=== PATIENT | female | born 1935 | race Hispanic/Latino ===

== ENCOUNTER 2020-09-26 13:42 | Outpatient (CLI) | payer MEDICARE ==
[2020-09-27 05:52] LABS: SARS-CoV-2 PCR by NAA Not Detected (NotDetected)
== END 2020-09-26 13:43 | disposition home or self-care (01) ==
LOC: CSHLAB 13:42
PROVIDERS: ATTEND Internal Medicine Gastroenterology
DX: Z20.822 Contact with and (suspected) exposure to COVID-19 (principal); K63.5 Polyp of colon
CPT/HCPCS: 87635; U0003; U0005

== ENCOUNTER 2020-09-29 08:38 | Day surgery (SDC) | payer MEDICARE ==
[2020-09-28 10:49] VITALS: BMI 28.3
[2020-09-29] MEDS ORDERED: Lidocaine 1% MPF 2 ML VIAL ONE (09:45)
[2020-09-29] MEDS ORDERED: PROPOFOL 40 ML ONE (10:23)
[2020-09-29] MEDS ORDERED: Lidocaine 1% PF 5 ML VIAL ONE (10:51)
== END 2020-09-29 12:10 | disposition home or self-care (01) ==
LOC: CSHSDC 08:38
PROVIDERS: ATTEND Internal Medicine Gastroenterology
DX: D12.2 Benign neoplasm of ascending colon (principal); D12.4 Benign neoplasm of descending colon; R10.9 Unspecified abdominal pain; K57.30 Diverticulosis of large intestine without perforation or abscess without bleeding; K64.9 Unspecified hemorrhoids; I10 Essential (primary) hypertension; M81.0 Age-related osteoporosis without current pathological fracture; F41.9 Anxiety disorder, unspecified; Z90.49 Acquired absence of other specified parts of digestive tract; Z90.710 Acquired absence of both cervix and uterus
CPT/HCPCS: 88305; J2704

== ENCOUNTER 2022-01-14 13:20 | Inpatient (IN) | payer MEDICARE ==
[2022-01-14] MEDS ORDERED: Ondansetron PF 4 MG/2 ML Vial ONE ×2 (13:39→14:12)
[2022-01-14] MEDS ORDERED: Aspirin Chewable 81 MG TAB ONE (13:39)
[2022-01-14 13:43] LABS: #Eosinphils 0.1 10x3/uL (0.0-0.5); #Monocytes 0.4 10x3/uL (0.0-1.1); #Neutrophils 3.9 10x3/uL (1.5-8.4); %Basophils 0.3 % (0.0-2.0); %Eosinophils 1.6 % (0.0-6.0); %Monocytes 7.2 % (0.0-10.0); %Neutrophils 64.4 % (40.0-75.0); Hemoglobin 14.5 g/dL (12.0-15.5); Mean Corpuscular HGB CONC 34.4 g/dL (32.0-36.0); Mean Corpuscular Hemoglobin 35.4 pg (27.0-33.0); Mean Corpuscular Volume 102.9 fl (81.6-98.3); Mean Platelet Volume 9.6 fl (7.4-10.4); Platelet Count 495 10x3/uL (150-450); RBC Distribution Width 13.9 % (11.5-14.5); White Blood Cell (WBC) Count 6.1 10x3/uL (3.5-10.5)
[2022-01-14 14:00] LABS: ALT (SGPT) 21 U/L (8-55); AST (SGOT) 26 U/L (5-34); Albumin 4.2 g/dL (3.4-4.8); Alkaline Phosphatase 53 U/L (40-110); Anion Gap 16 mmol/L (10-20); BUN (Urea Nitrogen) 17 mg/dL (9.8-20.1); Bilirubin, Total 1.2 mg/dL (0.2-1.2); CK (CPK) 33 U/L (29-168); Calc. Creatinine Clearance 0 mL/min (70-130); Calcium 9.5 mg/dL (7.8-10.44); Carbon Dioxide 24 mmol/L (23-31); Chloride 103 mmol/L (98-107); Estimated GFR 77; Globulin 2.7 g/dL (2.4-3.5); Glucose 128 mg/dL (83-110); Potassium 4.6 mmol/L (3.5-5.1); Protein, Total 6.9 g/dL (5.8-8.1); Sodium 138 mmol/L (136-145)
[2022-01-14] MEDS ORDERED: Lorazepam 2 MG/ML VIAL ONE (14:23)
[2022-01-14] MEDS ORDERED: Ondansetron ODT 4 MG TAB PO PRN (17:09)
[2022-01-14] MEDS ORDERED: Ondansetron PF 4 MG/2 ML Vial IVP PRN (17:09)
[2022-01-14] MEDS ORDERED: Acetaminophen 325 MG TAB PO PRN (17:09)
[2022-01-14 17:52] LABS: Troponin I Less than 0.010 ng/mL (< 0.028)
[2022-01-14] MEDS ORDERED: Promethazine 25 MG TAB PO PRN (17:58)
[2022-01-14] MEDS ORDERED: hydrALAZINE 20 MG/ML VIAL SLOW IVP PRN (17:58)
[2022-01-14] MEDS ORDERED: Promethazine HCl 25 MG SUPP PR PRN (17:58)
[2022-01-14 19:47] LABS: Troponin I Less than 0.010 ng/mL (< 0.028)
[2022-01-14] MEDS ORDERED: Sodium Chloride 0.9% 1,000 ML IV SCH (21:15)
[2022-01-14 22:11] LABS: Bilirubin Neg (Negative); Blood, Urine 10 (Negative); Clarity Cloudy (Clear); Glucose, Urine (Dipstick) Normal (Negative); Ketone, Urine 50 mg/dL (Negative); Leukocyte 25 (Negative); Nitrite Negative (Negative); Protein, Urine (Dipstick) Negative (Neg-Trace)
[2022-01-14 22:20] LABS: Bacteria/HPF 4+ HPF (None Seen); Mucous/LPF None Seen LPF (<2+); RBC/HPF None Seen HPF (0-3); Squamous Epithelial None Seen HPF (0-3)
[2022-01-14 22:28] LABS: SARS-CoV-2 NAA Rapid Test Not Detected (NotDetected)
[2022-01-15 00:01] VITALS: BMI 40.4
[2022-01-15 00:31] LABS: Hemoglobin A1c 4.9 % (4.0-6.0)
[2022-01-15 04:44] LABS: #Eosinphils 0.2 10x3/uL (0.0-0.5); #Monocytes 0.7 10x3/uL (0.0-1.1); #Neutrophils 3.9 10x3/uL (1.5-8.4); %Basophils 0.6 % (0.0-2.0); %Eosinophils 2.3 % (0.0-6.0); %Lymphocytes 26.9 % (18.0-47.0); %Monocytes 10.6 % (0.0-10.0); %Neutrophils 59.3 % (40.0-75.0); Hemoglobin 13.7 g/dL (12.0-15.5); Mean Corpuscular HGB CONC 34.5 g/dL (32.0-36.0); Mean Corpuscular Hemoglobin 35.6 pg (27.0-33.0); Mean Corpuscular Volume 103.1 fl (81.6-98.3); Mean Platelet Volume 9.7 fl (7.4-10.4); Platelet Count 399 10x3/uL (150-450); RBC Distribution Width 14.2 % (11.5-14.5); Red Blood Cell (RBC) Count 3.85 10x6/uL (3.90-5.03); White Blood Cell (WBC) Count 6.5 10x3/uL (3.5-10.5)
[2022-01-15 04:56] LABS: ALT (SGPT) 18 U/L (8-55); AST (SGOT) 22 U/L (5-34); Albumin 3.5 g/dL (3.4-4.8); Alkaline Phosphatase 44 U/L (40-110); Anion Gap 14 mmol/L (10-20); BUN (Urea Nitrogen) 15 mg/dL (9.8-20.1); Bilirubin, Total 1.5 mg/dL (0.2-1.2); Calc. Creatinine Clearance 58 mL/min (70-130); Calcium 8.7 mg/dL (7.8-10.44); Carbon Dioxide 24 mmol/L (23-31); Chloride 105 mmol/L (98-107); Cholesterol 144 mg/dl (< 200 Desired); Estimated GFR 85; Globulin 2.6 g/dL (2.4-3.5); Glucose 86 mg/dL (83-110); HDL Cholesterol 48 mg/dL (>60 Neg Risk); LDL Cholesterol, Calculated 82 mg/dL; Potassium 3.7 mmol/L (3.5-5.1); Protein, Total 6.1 g/dL (5.8-8.1); Sodium 139 mmol/L (136-145); Triglycerides 70 mg/dL (Less than 150)
[2022-01-15] MEDS: Aspirin Chewable 81 MG TAB PO SCH (08:32)
[2022-01-15] MEDS: Enoxaparin Sodium 30 MG/0.3 ML SYRINGE SC SCH (08:32)
[2022-01-15] MEDS ORDERED: hydrALAZINE 20 MG/ML VIAL SLOW IVP PRN (09:02)
[2022-01-15] MEDS ORDERED: Meclizine HCl 12.5 MG TAB PO SCH (09:30)
[2022-01-15] MEDS ORDERED: Meclizine HCl 25 MG TAB PO SCH (14:00)
[2022-01-15] MEDS: Meclizine HCl 12.5 MG TAB PO SCH ×2 (14:23→22:08)
[2022-01-15] MEDS: Carvedilol 6.25 MG TAB PO SCH (18:09)
[2022-01-15] MEDS ORDERED: Simethicone Chewable 80 MG TAB PO PRN (18:19)
[2022-01-16 01:19] LABS: Bilirubin Neg (Negative); Blood, Urine Negative (Negative); Clarity Cloudy (Clear); Glucose, Urine (Dipstick) Normal (Negative); Ketone, Urine Negative (Negative); Leukocyte 100 (Negative); Nitrite Negative (Negative); Protein, Urine (Dipstick) Negative (Neg-Trace); Specific Gravity, Urine 1.015 (1.002-1.036)
[2022-01-16 01:25] LABS: RBC/HPF None Seen HPF (0-3); Squamous Epithelial None Seen HPF (0-3)
[2022-01-16 01:26] LABS: Bacteria/HPF 4+ HPF (None Seen); Urine Culture Reflex Yes Yes
[2022-01-16] MEDS: Meclizine HCl 12.5 MG TAB PO SCH ×3 (07:05→21:40)
[2022-01-16] MEDS: Carvedilol 6.25 MG TAB PO SCH ×2 (09:30→17:06)
[2022-01-16] MEDS: Enoxaparin Sodium 30 MG/0.3 ML SYRINGE SC SCH (09:30)
[2022-01-16] MEDS: Aspirin Chewable 81 MG TAB PO SCH (09:30)
[2022-01-16] MEDS: Losartan 25 MG TAB PO SCH (09:30)
[2022-01-16] MEDS: cefTRIAXone\\ROCEPHIN 1 GM in Sodium Chloride 0.9% 100 ML IVPB SCH (12:18)
[2022-01-17] MEDS: Meclizine HCl 12.5 MG TAB PO SCH ×2 (05:42→17:25)
[2022-01-17] MEDS: Enoxaparin Sodium 30 MG/0.3 ML SYRINGE SC SCH (08:28)
[2022-01-17] MEDS: Losartan 25 MG TAB PO SCH (08:29)
[2022-01-17] MEDS: Carvedilol 6.25 MG TAB PO SCH ×2 (08:29→17:25)
[2022-01-17] MEDS: Aspirin Chewable 81 MG TAB PO SCH (08:29)
[2022-01-17] MEDS ORDERED: Hydroxyurea 500 MG CAP PO SCH (09:00)
[2022-01-17] MEDS: cefTRIAXone\\ROCEPHIN 1 GM in Sodium Chloride 0.9% 100 ML IVPB SCH (11:39)
[2022-01-17] MEDS ORDERED: ALPRAZolam 0.25 MG TAB PO PRN (16:02)
[2022-01-17 17:06] VITALS: BP 109/53; TEMP 97.5
== END 2022-01-17 19:00 | DRG 149 ==
LOC: CSHERS 13:20 → SUATTDRO 13:20 → CSHERHOLD 17:08 → CSHTELE 21:08 → OBSVTOIN 01-16 10:07
PROVIDERS: ADMIT Emergency Medicine Emergency Medical Services; ATTEND Internal Medicine
DX: H81.10 Benign paroxysmal vertigo, unspecified ear (principal); I50.20 Unspecified systolic (congestive) heart failure; I51.81 Takotsubo syndrome; N39.0 Urinary tract infection, site not specified; F41.9 Anxiety disorder, unspecified; Z20.822 Contact with and (suspected) exposure to COVID-19; D69.6 Thrombocytopenia, unspecified; F32.A Depression, unspecified; G30.9 Alzheimer's disease, unspecified; F02.80 Dementia in other diseases classified elsewhere, unspecified severity, without behavioral disturbance, psychotic disturbance, mood disturbance, and anxiety; I25.10 Atherosclerotic heart disease of native coronary artery without angina pectoris; E78.5 Hyperlipidemia, unspecified; I73.9 Peripheral vascular disease, unspecified; M81.0 Age-related osteoporosis without current pathological fracture; M51.14 Intervertebral disc disorders with radiculopathy, thoracic region; H35.30 Unspecified macular degeneration; D75.839 Thrombocytosis, unspecified; Z96.653 Presence of artificial knee joint, bilateral; H40.9 Unspecified glaucoma; B96.20 Unspecified Escherichia coli [E. coli] as the cause of diseases classified elsewhere; R07.89 Other chest pain; T45.1X5A Adverse effect of antineoplastic and immunosuppressive drugs, initial encounter; I70.1 Atherosclerosis of renal artery; I25.2 Old myocardial infarction; Z88.6 Allergy status to analgesic agent; Z88.8 Allergy status to other drugs, medicaments and biological substances; Z79.82 Long term (current) use of aspirin; Z79.899 Other long term (current) drug therapy; Z90.49 Acquired absence of other specified parts of digestive tract; Z90.710 Acquired absence of both cervix and uterus; Z83.3 Family history of diabetes mellitus; Z82.3 Family history of stroke
CPT/HCPCS: 70450; 71045; 80053; 80061; 81001; 82550; 83036; 84443; 84484; 85025; 87077; 87086; 87186; 93005; 93010; 93306; 93880; 94760; 96372; 96374; 96375; 96376; G0378; J0696; J1650; J2060; J2405; J3490; J7050; U0002

== ENCOUNTER 2022-05-23 09:50 | Outpatient (CLI) | payer MEDICARE | END 2022-05-23 09:51 | disposition home or self-care (01) | LOC: CSHMAMMO 09:50 | PROVIDERS: ATTEND Family Medicine | DX: Z13.820 Encounter for screening for osteoporosis (principal); Z78.0 Asymptomatic menopausal state; M81.0 Age-related osteoporosis without current pathological fracture; M85.851 Other specified disorders of bone density and structure, right thigh | CPT/HCPCS: 77080 ==

== ENCOUNTER 2022-07-11 17:03 | Emergency (ER) | payer MEDICARE ==
[2022-07-11] MEDS ORDERED: Acetaminophen 325 MG TAB ONE (19:10)
[2022-07-11] MEDS ORDERED: Ibuprofen 200 MG TAB ONE (19:11)
[2022-07-11] MEDS ORDERED: Lorazepam 0.5 MG TAB ONE (19:22)
[2022-07-11] MEDS ORDERED: traMADol HCl 50 MG TAB ONE (19:23)
[2022-07-11 19:48] LABS: #Eosinphils 0.2 10x3/uL (0.0-0.5); #Monocytes 0.7 10x3/uL (0.0-1.1); #Neutrophils 4.3 10x3/uL (1.5-8.4); %Basophils 0.3 % (0.0-2.0); %Lymphocytes 22.5 % (18.0-47.0); %Monocytes 10.2 % (0.0-10.0); %Neutrophils 63.7 % (40.0-75.0); Hemoglobin 14.2 g/dL (12.0-15.5); Mean Corpuscular HGB CONC 34.1 g/dL (32.0-36.0); Mean Corpuscular Hemoglobin 35.5 pg (27.0-33.0); Mean Platelet Volume 9.7 fl (7.4-10.4); Platelet Count 371 10x3/uL (150-450); RBC Distribution Width 13.3 % (11.5-14.5); White Blood Cell (WBC) Count 6.8 10x3/uL (3.5-10.5)
[2022-07-11 20:04] LABS: ALT (SGPT) 16 U/L (8-55); AST (SGOT) 21 U/L (5-34); Albumin 3.9 g/dL (3.4-4.8); Alkaline Phosphatase 53 U/L (40-110); Anion Gap 11 mmol/L (10-20); BUN (Urea Nitrogen) 18 mg/dL (9.8-20.1); Calc. Creatinine Clearance 0 mL/min (70-130); Calcium 9.1 mg/dL (7.8-10.44); Carbon Dioxide 28 mmol/L (23-31); Chloride 102 mmol/L (98-107); Estimated GFR 66; Globulin 2.8 g/dL (2.4-3.5); Glucose 113 mg/dL (83-110); Potassium 4.4 mmol/L (3.5-5.1); Protein, Total 6.7 g/dL (5.8-8.1); Sodium 137 mmol/L (136-145)
== END 2022-07-11 21:00 | disposition home or self-care (01) ==
LOC: CSHERS 17:03
DX: S22.20XA Unspecified fracture of sternum, initial encounter for closed fracture (principal); R42 Dizziness and giddiness; I11.0 Hypertensive heart disease with heart failure; I50.9 Heart failure, unspecified; E78.5 Hyperlipidemia, unspecified; W19.XXXA Unspecified fall, initial encounter
CPT/HCPCS: 36415; 80053; 84484; 85025; 93005

== ENCOUNTER 2024-06-02 11:23 | Outpatient (CLI) | payer MEDICARE | END 2024-06-02 11:24 | disposition home or self-care (01) | LOC: CSHMAMMO 11:23 | PROVIDERS: ATTEND Family Medicine | DX: Z78.0 Asymptomatic menopausal state (principal); M81.0 Age-related osteoporosis without current pathological fracture | CPT/HCPCS: 77080 ==

== ENCOUNTER 2025-03-28 17:57 | Emergency (ER) | payer MEDICARE ==
[2025-03-28 18:53] LABS: #Basophils Less than 0.03 10x3/uL (0.0-0.2); #Eosinophils 0.14 10x3/uL (0.0-0.5); #Monocytes 0.41 10x3/uL (0.0-1.1); #Neutrophils 2.09 10x3/uL (1.5-8.4); %Basophils 0.2 % (0.0-2.0); %Eosinophils 3.3 % (0.0-6.0); %Lymphocytes 36.8 % (18.0-47.0); %Monocytes 9.7 % (0.0-10.0); %Neutrophils 49.8 % (40.0-75.0); Hematocrit 36.9 % (34.9-44.5); Hemoglobin 12.5 g/dL (12.0-15.5); Mean Corpuscular Hemoglobin 38.2 pg (27.0-33.0); Mean Corpuscular Volume 112.8 fL (81.6-98.3); Platelet Count 222 10x3/uL (150-450); Red Blood Cell (RBC) Count 3.27 10x6/uL (3.90-5.03); White Blood Cell (WBC) Count 4.21 10x3/uL (3.5-10.5)
[2025-03-28 19:07] LABS: ALT (SGPT) 13 U/L (Less than 34); AST (SGOT) 20 U/L (11-34); Albumin 4.0 g/dL (3.1-4.5); Alkaline Phosphatase 69 U/L (40-110); Anion Gap 11 mmol/L (10-20); BUN (Urea Nitrogen) 29 mg/dL (9.8-20.1); Bilirubin, Total 0.6 mg/dL (0.3-1.2); Calc. Creatinine Clearance 0 mL/min (70-130); Calcium 9.0 mg/dL (7.8-10.44); Carbon Dioxide 27 mmol/L (23-31); Chloride 105 mmol/L (98-107); Globulin 2.9 g/dL (2.4-3.5); Glucose 96 mg/dL (83-110); Potassium 3.8 mmol/L (3.5-5.1); Sodium 139 mmol/L (136-145)
[2025-03-28] MEDS ORDERED: Boostrix 0.5 ML (Tdap) VIAL (>/=7 yrs of age) ONE (19:14)
[2025-03-28] MEDS ORDERED: Bacitracin 1 PK ONE (19:24)
[2025-03-28] MEDS ORDERED: Lidocaine/Transparent Dressing 1 EACH KIT ONE (19:24)
[2025-03-28 19:25] LABS: MDiff Complete? YES; Macrocytosis MODERATE=16-30 cells (100X) (0-5/hpf); Platelet Adequacy Comment Appears Adequate
== END 2025-03-28 19:45 | disposition home or self-care (01) ==
LOC: CSHERS 17:57
DX: S01.01XA Laceration without foreign body of scalp, initial encounter (principal); E04.1 Nontoxic single thyroid nodule; I11.0 Hypertensive heart disease with heart failure; I50.9 Heart failure, unspecified; Z23 Encounter for immunization; W01.0XXA Fall on same level from slipping, tripping and stumbling without subsequent striking against object, initial encounter
CPT/HCPCS: 12001; 36416; 70450; 72125; 80053; 85025; 90471; 90715; 93005

== ENCOUNTER 2025-05-11 16:53 | Emergency (ER) | payer MEDICARE | END 2025-05-11 18:55 | disposition home or self-care (01) | LOC: CSHERS 16:53 | DX: S61.412A Laceration without foreign body of left hand, initial encounter (principal); S50.01XA Contusion of right elbow, initial encounter; I11.0 Hypertensive heart disease with heart failure; I50.9 Heart failure, unspecified; Z55.6 Problems related to health literacy; W01.0XXA Fall on same level from slipping, tripping and stumbling without subsequent striking against object, initial encounter | CPT/HCPCS: 12001; 93005; 99283 ==